=== PATIENT | female | born 1995 | race Caucasian/White ===

== ENCOUNTER 2017-08-23 12:07 | Emergency (ER) | payer BC ==
[~2017-08-23] VITALS: Ht 170.2 cm; Wt 59.5 kg
[~2017-08-23 12:07] MED LIST: IBUP200C9 PO; PSEU60TA80 PO
[2017-08-23 12:15] VITALS: TEMP 36.9; Ht 170.2 cm; Wt 59.5 kg
[2017-08-23] MEDS ORDERED: PROPARACAINE HCL 0.5% OP SOLN 15 ML BTL OP STA (12:29)
[2017-08-23] MEDS ORDERED: ACETAMINOPHEN 500 MG TAB PO STA (12:29)
[2017-08-23] MEDS ORDERED: TRAMADOL HCL 50 MG TAB PO STA (12:29)
--- NOTE | 2017-08-23 13:05 | DIAGNOSTIC IMAGING REPORT ---
CT SCAN OF THE FACIAL BONES WITHOUT IV CONTRAST CLINICAL HISTORY: Headache. Facial pain. COMPARISON STUDY: CT of the brain dated 08/23/2017. TECHNIQUE: High-resolution CT scan of the facial bones is performed. Images are reviewed in the axial, sagittal, and coronal planes. IV contrast was not administered for this examination. A dose lowering technique was utilized adhering to the principles of ALARA. FINDINGS: The skeletal structures are well mineralized. There is no evidence of facial bone fracture. The bony orbits are intact and the orbital contents are within normal limits. The zygomatic arches, nasal bones, and pterygoid plates are preserved. The maxilla and mandible are intact. There are no layering blood products within the paranasal sinuses. Mild mucosal thickening is seen in the maxillary antra, the frontal sinuses, and the sphenoid sinuses. Moderate mucosal thickening is seen within the ethmoid sinuses. The mastoid air cells are clear. The visualized calvarium and upper cervical spine are maintained. Partially imaged brain parenchyma is within normal limits. IMPRESSION: 1. There is no evidence of facial bone fracture. 2. Paranasal sinus disease as above. Electronically signed by: Colby Sandhu M.D. 08/23/2017 1:04 PM Dictated Date/Time: 08/23/2017 12:59 PM
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
[2017-08-23] MEDS ORDERED: TRAM-10 PO (13:32)
[2017-08-23 13:41] VITALS: BP 107/65; PULSE 80; O2SAT 99
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
== END 2017-08-23 13:45 | disposition home or self-care (01) ==
LOC: C.EDB 12:09 → C.EDD 13:45
DX: S00.83XA Contusion of other part of head, initial encounter (principal); Y09 Assault by unspecified means; Z83.3 Family history of diabetes mellitus; Z82.49 Family history of ischemic heart disease and other diseases of the circulatory system